=== PATIENT | female | born 1985 ===

== ENCOUNTER 2018-09-25 20:40 | Inpatient (IN) | payer MEDICAID ==
[2018-09-25 22:51] LABS: BASO % 0.4 % (0.0-2.0); EOS # 0.1 K/uL (0.0-0.7); EOS % 0.9 % (0.0-4.0); HEMOGLOBIN 13.2 g/dL (11.0-16.0); LYMPH # 1.9 K/uL (1.0-4.3); LYMPH % 17.7 % (20.0-40.0); MEAN CELL VOLUME 85.9 fL (81.0-99.0); MEAN CORPUSCULAR HEMOGLOBIN 29.2 pg (27.0-31.0); MEAN PLATELET VOLUME 9.6 fL (7.2-11.7); MONO # 0.5 K/uL (0.0-0.8); MONO % 5.1 % (0.0-10.0); NEUT # 8.1 K/uL (1.8-7.0); NEUT % 75.9 % (50.0-75.0); RBC 4.53 Mil/uL (3.80-5.20); RED CELL DISTRIBUTION WIDTH 14.3 % (11.5-14.5); WHITE BLOOD COUNT 10.7 K/uL (4.8-10.8)
[2018-09-25 22:59] LABS: SQUAMOUS EPITHIAL 15 /hpf (0-5); URINE BACTERIA OCC (<OCC); URINE BILIRUBIN NEGATIVE (NEGATIVE); URINE BLOOD NEGATIVE (NEGATIVE); URINE CLARITY Hazy (Clear); URINE COLOR Yellow (YELLOW); URINE GLUCOSE (UA) NORMAL (Normal); URINE LEUKOCYTE ESTERASE NEG Leu/uL (Negative); URINE PROTEIN NEGATIVE (NEGATIVE); URINE UROBILINOGEN NORMAL mg/dL (0.2-1.0)
[2018-09-25 23:05] LABS: ALB/GLOB RATIO 1.1 (1.0-2.1); ALBUMIN 3.6 g/dL (3.5-5.0); ALT/SGPT 27 U/L (9-52); AST/SGOT 23 U/L (14-36); BLOOD UREA NITROGEN 11 mg/dL (7-17); CALCIUM 9.5 mg/dl (8.6-10.4); GFR NON-AFRICAN AMERICAN > 60
--- NOTE | 2018-09-25 23:38 | OBADHP ---
Datetime: 09/25/2018 23:21 Admit Comment, IP Provider: A/P: 33 yo with IUP at 40 wks for IOL for GDMA1 - primagravida - GDMA1 - IOL with cervidil - Cervidil placed @2137 09/25/18 - GBS+ - PCN all, clinda resistant - Vancomycin 1g Pelvic Type - PN: Adequate Extremities - PN: Normal Abdomen - PN: Normal Back - PN: Normal Breast - PN: Normal Lungs - PN: Normal Heart - PN: Normal Thyroid - PN: Normal Neurologic - PN: Normal HEENT - PN: Normal General - PN: Normal Presentation-Admit: Vertex FHR - Baseline A Provider: 130s Contraction Comments Provider: irregular Gestation - Est Wks by US: 40.0 Vital Signs Provider: Reviewed; Within Normal Limits IP Chief Complaint: Scheduled induction of labor NICHD Variability Prov Fetus A: Moderate 6-25bpm NICHD Accel Fetus A IP Provider: 15X15 FHR Category Provider Fetus A: Category I NICHD Decel Fetus A IP Provider: None Dilatation, Provider: 1 Effacement, Provider: 60 Station, Provider: -2 Genitourinary Exam: Normal DTRs - PN: Normal EGA AdmitDate IP: 40.0 IP Adm Impression: Term, intrauterine IP Admit Plan: Initiate labor induction protocol
[2018-09-25] MEDS: Lactated Ringer's 1,000 ML IV SCH (23:45)
[2018-09-26] MEDS ORDERED: Oxytocin 30 UNIT 30 UNITS/500 ML BAG IV ONE ×2 (10:01→10:02)
[2018-09-26] MEDS ORDERED: Phenylephrine 10 mg/ml Inj ONE ×2 (15:58→16:01)
[2018-09-26] MEDS ORDERED: Morphine 1 mg/ml preservative-free Inj(Duramorph) ONE (15:58)
--- NOTE | 2018-09-26 17:30 | US ---
Indication: Estimated weight, confirm location of head Comparison: None available. Technique: Real-time ultrasound was performed through the pelvis. Findings: There is a single living fetus in cephalic presentation. Amniotic fluid volume is within normal limits. Fundal placenta. The placenta is not previa. There are no adnexal masses or cysts evident. Cervix length measures approximately 2.9 cm. The study was performed for emergent evaluation, and the whole anatomic survey of the fetus was not performed. Limited visualized anatomy appears grossly unremarkable. Measurements and calculations: Fetus has a composite sonographic age of 38 weeks 6 days. This calculation is based on the biparietal diameter, head circumference, abdominal circumference, and femur length. Estimated heart rate 142.5 beats per min. Estimated weight 3470 g. Biophysical profile: movements 2/2 breathing 2/2 tone 2/2 Amniotic fluid 2/2 Total score impression: 06/29 Impression: Single living fetus with a composite sonographic age of 38 weeks 6 days. Estimated heart rate 142.5 beats per min. Biophysical profile of 8 out of 8. Cervix length measures approximately 2.9 cm.
[2018-09-26] MEDS ORDERED: Lactated Ringer's 1,000 ML IV ONE (18:11)
[2018-09-26] MEDS ORDERED: Sodium Citrate/Citric Acid 15 ml Sol ONE (18:15)
[2018-09-26] MEDS ORDERED: Sodium Citrate/Citric Acid 15 ml Sol PO ONE (18:16)
[2018-09-26] MEDS ORDERED: Oxytocin 20 units in LR 2,000 ML IV ONE (18:29)
[2018-09-26] MEDS ORDERED: Bupivacaine HCl 15 mg/2 ml Spinal Inj ONE (18:31)
[2018-09-26] MEDS ORDERED: Lidocaine Hydrochloride 5 ML INJ ONE (18:33)
[2018-09-26] MEDS ORDERED: Oxytocin 10 Units/ml Inj ONE (19:15)
[2018-09-26] MEDS ORDERED: Oxycodone/Acetaminophen 5/325 mg Tab PO PRN (21:08)
[2018-09-26] MEDS: Simethicone 80 mg Chewtab PO SCH (22:12)
--- NOTE | 2018-09-26 22:36 | OBPN ---
Datetime: 09/26/2018 15:17 IP Progress Impression: Reassuring heart rate; Reactive non-stress test IP Informed Consent Obtain: Vaginal Delivery IP Procedures: Sterile Vag Exam IP Progress Plan: Continue present management; Induction; Antibiotic therapy; Anticipate Vaginal Del lorin Membranes, Provider: Intact Contraction Comments Provider: contractions q 5 mins on toco FHR - Baseline A Provider: 140 Gestation - Est Wks by US: 40.1 IP Progress Note Comment: Pt seen and examined at bedside. C/o lower abd pressure currently, otherwi se resting comfortably at bedside. Denies LOF or vag. bleeding. Reports +FM. On Pitocin at rate of 18 . Difficult to assess UC's secondary to patients body habitus SVE: /-3 and unchanged from this AM Discussed with patient possibility of stopping the Pitocin and repeat Cervidil tonite and restart Pitocin in AM Pt declined to continue with IOl and requested a Primary C/S. Procedure, risks and possible complications fully discussed with the patient and her mother (suppo rt Person) and she verbalized understanding and insisted in a Section delivery. Consent signed by patient. Pitocin was discontinued and Anesthesia and OR aware and will proceed with Section delive ry FHT: baseline HR 140, moderate accels, Cat I tracing A/P: here for induction of labor. Discussed with patient possibility of stopping the Pitocin and repeat Cervidil tonite and restart Pitocin in AM Pt declined to continue with IOl and requested a Primary C/S. Procedure, risks and possible complications fully discussed with the patient and her mother (suppo rt Person) and she verbalized understanding and insisted in a Section delivery. Consent signed by patient. Pitocin was discontinued and Anesthesia and OR aware and will proceed with Section delive ry FHT: baseline HR 140, moderate accels, Cat I tracing Plan d/w Dr. Devi, attending physician. Miles Nascimento, DO PGY-1 Vital Signs Provider: Reviewed; Within Normal Limits NICHD Accel Fetus A IP Provider: 15X15 FHR Category Provider Fetus A: Category I NICHD Variability Prov Fetus A: Moderate 6-25bpm Dilatation, Provider: 2 Effacement, Provider: 60 Station, Provider: -3 NICHD Decel Fetus A IP Provider: None Datetime: 09/25/2018 23:21 Presentation-Admit: Vertex
[2018-09-26] MEDS ORDERED: DiphenhydrAMINE 50 mg/ml Inj IVP PRN (22:42)
--- NOTE | 2018-09-26 23:12 | OBDS ---
DELIVERY PERSONNEL Delivery Doctor: Love Devi DO Scrub Nurse: Paula Harmon Diesel Engine Assembler: Ailin Rollins RN Anesthesiologist: Harinder MATERNAL INFORMATION Delivery Anesthesia: Spinal Medications in Delivery: Oxytocin Estimated Blood Loss (ml): 600 Maternal Complications: None; Other Other Maternal Complications: RN Comments: PrimaryLTC/S @1909,GIRL, dried _ stimulate,color pink suctioned with bulb syringe,Dr.El hernandez attended,no abnormalities noted.positive bonding with mother, 9/9,7-12-3515 gm,19.50 in Provider Comments: Primary LTC C/S with delivery of a viable female from ZEE position and af ter reducing a loose CNC x 1. Apgars 9_9, BW 7lbs, 12oz. Cord Blood and Cord pH obtained and sent EBL 600 mls, No complications Pt and tolerated procedure well and remained in OR in Stable and Satisfactory condition. LABOR SUMMARY EDC: 09/25/2018 00:00 No. Babies in Womb: 1 Attempted: No Labor Anesthesia: Intrathecal LABOR INFORMATION Cervical Ripening Agents: Cervidil (Annotations: 10 mg) Group B Beta Strep: Positive Antibiotics Time of Last Dose: 1130 Steroids Given: None Reason Steroids Not Administered: Not Applicable MEMBRANES Membranes Rupture Method: Artificial Amniotic Fluid Color: Clear Amniotic Fluid Amount: Moderate Amniotic Fluid Odor: Normal STAGES OF LABOR Stage 3 hrs: 0 Stage 3 min: 2 CSECTION DELIVERY CSection Urgency: N/A CSection Incidence: Primary Elective: Nonelective CSection Incision: Lower Uterine Transverse BABY A INFORMATION Infant Delivery Date/Time: 09/26/2018 19:09 Method of Delivery: Born in Route : No : N/A Forceps: N/A Vacuum Extraction: N/A Shoulder Dystocia : No SHOULDER DYSTOCIA BABY A Infant Delivery Date/Time: 09/26/2018 19:09 PRESENTATION/POSITION BABY A Presentation: Cephalic Cephalic Presentation: Vertex Vertex Position: Right Occipital Anterior Breech Presentation: N/A PLACENTA INFORMATION BABY A Placenta Delivery Time : 09/26/2018 19:11 Placenta Method of Delivery: Manual Removal Placenta Status: Delivered SCORES BABY A Heart Rate 1 min: >100 bpm Resp Effort 1 min: Good Cry Reflex Irritability 1 min: Cough or Sneeze or Pulls Away Muscle Tone 1 min: Active Motion Color 1 min: Body [place], Extremities Blue Resuscitation Effort 1 min: Tactile Stimulation SCORE 1 MIN: 9 Heart Rate 5 min: >100 bpm Resp Effort 5 min: Good Cry Reflex Irritability 5 min: Cough or Sneeze or Pulls Away Muscle Tone 5 min: Active Motion Color 5 min: Body [place], Extremities Blue Resuscitation Effort 5 min: N/A SCORE 5 MIN: 9 INFANT INFORMATION BABY A Gestational Age at Delivery: 40.1 Gestational Status: Term Infant Outcome : Liveborn Infant Condition : Stable Infant Sex: Female IDENTIFICATION/MEDS BABY A ID Band Number: [id number] ID Band Location: Left Leg; Left Arm Sensor Applied: Yes Sensor Number: [id number] Sensor Location : Cord Clamp Vitamin K Given : Aquamephyton 1 mg IM; Left Thigh Erythromycin Given: Given Both Eyes WEIGHT/LENGTH BABY A Infant Birthweight (gms): 3515 Infant Weight (lb): 7 Infant Weight (oz): 12 Length Inches: 19.50 Infant Length cms: 49.5 CORD INFORMATION BABY A No. Cord Vessels: 3 Nuchal Cord : Around Neck x1, Loose Infant Cord pH Baby Venous: yes Cord Blood Taken: Yes Infant Suction: Mouth; Nose ASSESSMENT BABY A Complications: None Physical Findings at Delivery: Within Normal Limits Respirations: Appears Normal Slat Grader/ALS Called : No Infant Care By: armida gamboa Transferred To: Nursery
[2018-09-27] MEDS: Lactated Ringer's 1,000 ML IV SCH (02:23)
[2018-09-27] MEDS: Oxycodone/Acetaminophen 5/325 mg Tab PO PRN ×3 (03:31→14:23)
[2018-09-27 08:39] VITALS: RESP 18
[2018-09-27 08:43] LABS: MEAN CELL VOLUME 85.7 fL (81.0-99.0); MEAN CORPUSCULAR HEMOGLOBIN 29.7 pg (27.0-31.0); MEAN CORPUSCULAR HGB CONC 34.6 g/dL (33.0-37.0); RBC 3.59 Mil/uL (3.80-5.20); RED CELL DISTRIBUTION WIDTH 14.6 % (11.5-14.5); WHITE BLOOD COUNT 9.7 K/uL (4.8-10.8)
[2018-09-27 08:45] LABS: HEMOGLOBIN 10.7 g/dL (11.0-16.0)
[2018-09-27] MEDS: Simethicone 80 mg Chewtab PO SCH ×4 (09:33→21:49)
[2018-09-27] MEDS: Prenatal Multivit/Folic Acid/Iron Tab PO SCH (09:33)
--- NOTE | 2018-09-27 14:55 | OBPPN ---
Datetime: 09/27/2018 08:26 PP Pain Prov: Within normal limits PP Nausea Prov: Denies PP Flatus Prov: No PP BM Prov: No PP Breasts Prov: Normal PP Heart Prov: Normal PP Lungs Prov: Normal PP Abdomen/Uterus Prov: Normal PP Lochia Prov: Normal PP Vulva/Perineum Prov: Normal PP Extremities Prov: Normal PP C/S Incision Prov: Normal PP Progress Prov: Abnormal PP Impression Prov: Normal progression; difficulties; Pain PP Plan Prov: Continue present management; consult PP Progress Note Prov: This is a 33 y o now at 40.1 weeks s/p elective primary low transve rse C/s POD#1. Pt seen and examined at bedside this am. States she felt a little lightheaded/dizzy wh ile rising from a seated position this am. Also c/o pain at surgical site, last received Percocet at 3 am. S/p santamaria removal at 6 am today, has not voided yet. Denies passing flatus or having BM. States baby is latching on while but states she is not producing enough breast milk yet. Obse rved ambulating around room without concerns. Denies headache, fever, chills, chest pain, sob, n/v/d/ c, urinary complaints, or other symptoms. VS: BP 124/76, P 74, T 98.3 Gen: WDWN female, NAD HEENT: NCAT, PERRLA, EOMI Neck: supple, no JVD Cardio: normal s1/s2, no m/r/g Lung: CTA, no wheezes rales or rhonchi Abd: soft, mild tenderness to palpation at surgical site, non-distended, normal bowel sounds x4 Exts: no c/c/e Neuro: AAOx3, no gross deficits on exam : mild lochia, non-foul smelling A/P: 33 y o now at 40.1 weeks s/p elective primary low transverse C/s POD#1. consulted, reassured pt to continue with as breast milk will start letting out over the next several days. C/w pain control Instructed pt to hydrate with lots of PO fluids today, advance diet as tolerated today Encourage ambulation and D/c planning for POD#[address] Palacios, attending physician. Miles Nascimento DO PGY-1 Attending Note: patient seen and evaluated by me with the Resident. i agree with the above as docu mented. Patient is clinically stable. IP PP Procedures: None
[2018-09-28] MEDS: Simethicone 80 mg Chewtab PO SCH ×4 (09:00→21:47)
[2018-09-28] MEDS: Prenatal Multivit/Folic Acid/Iron Tab PO SCH (09:01)
[2018-09-28 16:55] VITALS: O2SAT 100
[2018-09-28] MEDS: Oxycodone/Acetaminophen 5/325 mg Tab PO PRN (18:38)
--- NOTE | 2018-09-28 20:04 | OBPPN ---
Datetime: 09/28/2018 14:01 PP Pain Prov: Within normal limits PP Nausea Prov: Denies PP Flatus Prov: Yes PP BM Prov: No PP Breasts Prov: Normal PP Heart Prov: Normal PP Lungs Prov: Normal PP Abdomen/Uterus Prov: Normal PP Lochia Prov: Normal PP Vulva/Perineum Prov: Normal PP Extremities Prov: Normal PP C/S Incision Prov: Normal PP Progress Prov: Abnormal PP Comments Phys Exam Prov: FH at Umbilicus and minimal tenderness Incision clean, Dry and intact PP Impression Prov: Normal progression; difficulties; Pain PP Plan Prov: Continue present management PP Progress Note Prov: This is a 33 y o now at 40.1 weeks s/p elective primary low transve rse C/s POD#2. Pt seen and examined at bedside this am. States lightheadedness/dizziness has resolved from yeste rday, admits to drinking plenty of PO fluids. C/o pain at surgical site, requesting Percocet and Motrin prn for symptoms. Voiding without concer ns. Admits to passing flatus, denies having BM. States baby is latching on while but states she is not producing enough breast milk yet. States she was visited by the prepress specialist yesterday and they discussed techniques and t ips to help promote , but pt states she is still concerned. Observed ambulating around r oom without concerns. Denies headache, fever, chills, chest pain, sob, n/v/d/c, urinary complaints, o r other symptoms. VS: BP 126/78, P 96, T 97.8 Gen: WDWN female, NAD HEENT: NCAT, PERRLA, EOMI Neck: supple, no JVD Cardio: normal s1/s2, no m/r/g Lung: CTA, no wheezes rales or rhonchi Abd: soft, mild tenderness to palpation at surgical site, non-distended, normal bowel sounds x4 Exts: no cyanosis or clubbing; 1+ pitting edema b/l on lower exts, no calf tenderness b/l Neuro: AAOx3, no gross deficits on exam : mild lochia, non-foul smelling Skin: surgical site c/d/i A/P: 33 y o now at 40.1 weeks s/p elective primary low transverse C/s POD#2. Stable and Satisfactory condition and recovery consulted, again reassured pt to continue with . C/w pain management Instructed pt to hydrate with lots of PO water, tolerating PO diet well Encourage ambulation and D/c planning for POD#3 Pt seen, examined with, and plan d/w Dr. Devi, attending physician. Miles Nascimento, DO PGY-1 IP PP Procedures: None Vital Signs Provider PP: Reviewed; Within Normal Limits
[2018-09-29 09:39] VITALS: BP 139/80; PULSE 92; TEMP 97.7
[2018-09-29] MEDS: Prenatal Multivit/Folic Acid/Iron Tab PO SCH (09:55)
[2018-09-29] MEDS: Simethicone 80 mg Chewtab PO SCH ×2 (09:56→13:22)
[2018-09-29] MEDS ORDERED: Measles, Mumps, and Rubella 0.5 ML VIAL SC ONE ×2 (10:00→11:30)
--- NOTE | 2018-09-29 10:30 | PCM.PSYCH ---
Initial Psychiatric Evaluation - Initial Psychiatric Evaluation Type of Admission: Voluntary Legal Status: Capacity Chief Complaint (in patient's own words): I'm feeling okay.' History of Present Illness and Precipitating Events: patient is a 33 years old single [place] female, who came to the [facility] for delivery She delivered a baby girl almost 3 days ago. Today patient was consulted by psychiatry, because of history of depression and high score on Sneed scale. Patient reports a long history of depression. She reports history of more than 2 inpatient psychiatric hospitalizations, in [place]. She was last discharged in 2014. She reports history of being followed-up with a psychiatrist, who advised her to stop the medications in the beginning of . Since then she is not taking any antidepressants. patient reports that she is feeling happy that she has a baby, however she denies any feelings of hopelessness and helplessness. She reports some changes in her sleep pattern because of and delivery. However she denies any suicidal ideation or any homicidal ideation. She denies any auditory or visual hallucinations or any paranoia. She denies any manic symptoms. She denies drinking or any substance abuse. Collateral obtained from the mother, who was staying with her daughter in the hospital. She informed that patient tried to overdose in 2000 and that's only suicidal attempt she made. As per the mother, she becomes irritable sometimes however she is not suicidal or homicidal. As per her, she will watch her daughter and stay with her in [facility], as well as in [place]. past medical history None reported Current Medications: Active Medications Generic Name Dose Route Start Last Admin Trade Name Freq PRN Reason Stop Dose Admin Diphenhydramine HCl 25 mg 09/26/18 22:42 Benadryl IVP Q6 PRN Itching / Pruritus Docusate Sodium 100 mg 09/27/18 10:00 09/29/18 09:55 Colace PO 100 mg BID AURORA Administration Ferrous Sulfate 325 mg 09/27/18 10:00 09/29/18 09:56 Feosol PO 325 mg BID AURORA Administration Ibuprofen 600 mg 09/26/18 21:08 09/29/18 09:55 Motrin Tab PO 600 mg Q6H PRN Administration Pain, Mild (1-3) Ondansetron HCl 4 mg 09/26/18 22:43 Zofran Inj IVP Q6 PRN Nausea/Vomiting Oxycodone/Acetaminophen 1 tab 09/26/18 21:08 09/28/18 18:38 Percocet 5/325 Mg Tab PO 09/29/18 21:09 1 tab Q4H PRN Administration Pain, moderate (4-7) Oxycodone/Acetaminophen 2 tab 09/26/18 21:08 09/28/18 08:55 Percocet 5/325 Mg Tab PO 09/29/18 21:09 2 tab Q4H PRN Administration Pain, severe (8-10) Multivit/Folic Acid/Iron 1 tab 09/27/18 10:00 09/29/18 09:55 PO 1 tab DAILY AURORA Administration Simethicone 80 mg 09/26/18 22:00 09/29/18 09:56 Mylicon Chew Tab PO 80 mg QID AURORA Administration Past Psychiatric History - Past Psychiatric History Previous Treatment History: Inpatient Pertinent Medical Hx (Current Medical&Sleep Prob, Allergies): Allergies Allergy/AdvReac Type Severity Reaction Status Date / Time clindamycin Allergy RASH Verified 09/28/18 13:26 Penicillins Allergy RASH Verified 09/25/18 21:41 Review of Systems - Review of Systems All systems: reviewed and no additional remarkable complaints except - Psychiatric Psychiatric: Anxiety, Irritability. absent: Suicidal Ideation Mental Status Examination - Personal Presentation Personal Presentation: Looks stated age - Affect Affect: Constricted - Motor Activity Motor Activity: Calm - Reliability in Providing Information Reliability in Providing Information: Fair - Speech Speech: Organized - Mood Mood: Anxious - Formal Thought Process Formal Thought Process: No Impairment - Obsessions/Compulsions Obsessions: No Compulsions: No - Cognitive Functions Orientation: Person, Place, Situation, Time Sensorium: Alert Attention/Concentration: Attentive Abstract Thinking: [place] Estimate of Intelligence: Below average Judgement: Imparied, as evidence by: Poor judgement, Imparied, as evidence by: Lack of insight into illness - Risk Risk: Suicidal, Diminished functioning - Strength & Assets Inventory Strength & Assets Inventory: Family support DSM 5 DX - DSM 5 DSM 5 Diagnosis: Major depressive disorder recurrent moderate - Recommended/Plan of Treatment Treatment Recommendations and Plan of Treatment: Major depressive disorder recurrent moderate CBT Psychoeducation Supportive therapy Start Zoloft 25 mg by po daily Start Benadryl for 25 mg 4 insomnia Patient is psychiatrically stable cleared for discharge
--- NOTE | 2018-09-29 19:35 | OBPPN ---
Datetime: 09/29/2018 12:58 PP Pain Prov: Within normal limits PP Nausea Prov: Denies PP Flatus Prov: Yes PP BM Prov: No PP Breasts Prov: Normal PP Heart Prov: Normal PP Lungs Prov: Normal PP Abdomen/Uterus Prov: Normal PP Lochia Prov: Normal PP Vulva/Perineum Prov: Normal PP Extremities Prov: Normal PP C/S Incision Prov: Normal PP Progress Prov: Abnormal PP Impression Prov: Normal progression; difficulties PP Plan Prov: Discharge PP Progress Note Prov: This is a 33 y o now at 40.1 weeks s/p elective primary low transve rse C/S POD#3. Pt seen and examined at bedside this am. Admits to drinking some PO fluids. C/o pain at surgical site, requesting Percocet and Motrin prn for symptoms. Voiding without concer ns. Admits to passing flatus, denies having BM. States baby is latching on while but states she is not producing enough breast milk yet. Pt is using supplemental formula as well to feed baby. Observed ambulating around room without c oncerns. Denies headache, fever, chills, chest pain, sob, n/v/d/c, urinary complaints, or other sympt oms. VS: BP 126/78, P 96, T 97.8 Gen: WDWN female, NAD HEENT: NCAT, PERRLA, EOMI Neck: supple, no JVD Cardio: normal s1/s2, no m/r/g Lung: CTA, no wheezes rales or rhonchi Abd: soft, mild tenderness to palpation at surgical site, non-distended, normal bowel sounds x4 Exts: no cyanosis or clubbing; 1+ pitting edema b/l on lower exts, no calf tenderness b/l Neuro: AAOx3, no gross deficits on exam : mild lochia, non-foul smelling Skin: surgical site c/d/i A/P: 33 y o now at 40.1 weeks S/P elective primary low transverse C/S POD#3. Stable and Satisfactory condition and recovery. Instructed pt to hydrate with lots of PO water, tolerating PO diet well Encourage ambulation and Pt to follow at [facility] in 1 week after discharge for wound check, and 6 weeks after d ischarge for check. Psychiatry was consulted (Dr. Retana) for scoring > 20 on depression survey. Pt has had long standing history of depression before and admitted to being on psych meds outpatient pr ior to delivery. Dr. Retana recommended pt be started on Zoloft 25 mg PO daily, pt to be discharged on regimen. Pt was also c/o R ear pain that started today, and noted some brownish discharge coming out of the affected ear. Denied pruritis. Admitted to her ear feeling warm. Denied fever or chills. Examined wi th otoscope, tympanic membrane intact, cerumen impaction present. Will d/c pt on Debrox ear drops. Pt to f/u in clinic for cerumen disimpaction. Advised pt no heavy lifting > 20 lbs for the 1st 6 weeks after delivery. Advised pt not have sexual intercourse, place tampons in vagina, or douching for 6 weeks after del lorin. Pt declined contraception at this time; discussed with pt risks vs. benefits of various therapies and instructed pt to f/u in clinic if she changes her mind. D/c to home today on POD#3 Pt seen, examined with, and plan d/w Dr. Devi, attending physician. Miles Nascimento, DO PGY-1 IP PP Procedures: Rubella Vital Signs Provider PP: Reviewed; Within Normal Limits
--- NOTE | 2018-09-29 19:37 | OBDCSUM ---
Datetime: 09/29/2018 13:32 Discharged to, Provider: Home Follow up at, Provider: [facility] Disch Instr Activity: Normal activity; Bedrest; May be up to bathroom; May be up for meals; May Show er Disch Instr Diet: Regular Discharge Instructions, Provider: Routine instructions given Discharge Diagnosis, Provider: Term Delivered Discharge Time: 09/29/2018 15:45 Follow up in weeks, Provider: Oct 03, 2018 Disch Referrals: None Contraception discussed, Prov: Yes Disch Activity Restrictions: No exercising; No lifting; No driving; Minimize walking; Minimize stair -climbing; No sexual activity; Nothing in vagina - [place], tampons, douche Discharge Comment, Provider: 33 y o now at 40.1 weeks s/p elective primary low transverse C/s POD#3. Stable and Satisfactory condition and recovery. Instructed pt to hydrate with lots of PO water, tolerating PO diet well Encourage ambulation and Pt to follow at [facility] in 1 week after discharge for wound check, and 6 weeks after d ischarge for check. Psychiatry was consulted (Dr. Retana) for scoring > 20 on depression survey. Pt has had long standing history of depression before and admitted to being on psych meds outpatient pr ior to delivery. Dr. Retana recommended pt be started on Zoloft 25 mg PO daily, pt to be discharged on regimen. Pt was also c/o R ear pain that started today, and noted some brownish discharge coming out of the affected ear. Denied pruritis. Admitted to her ear feeling warm. Denied fever or chills. Examined wi th otoscope, tympanic membrane intact, cerumen impaction present. Will d/c pt on Debrox ear drops. Pt to f/u in clinic for cerumen disimpaction. Advised pt no heavy lifting > 20 lbs for the 1st 6 weeks after delivery. Advised pt not have sexual intercourse, place tampons in vagina, or douching for 6 weeks after del lorin. Pt declined contraception at this time; discussed with pt risks vs. benefits of various therapies and instructed pt to f/u in clinic if she changes her mind. D/c to home today on POD#3 Contraception after Delivery: Not Planning to Use
== END 2018-09-29 17:15 | disposition home or self-care (01) | DRG 540 ==
LOC: C.EROB 20:40 → C.4D 21:41 → C.4M 09-26 22:45
PROVIDERS: ADMIT Obstetrics & Gynecology; ATTEND Obstetrics & Gynecology
PROC: 3E0P7VZ Introduction of Hormone into Female Reproductive, Via Natural or Artificial Opening (ICD-10-PCS; 2018-09-25)
PROC: 10D00Z1 Extraction of Products of Conception, Low, Open Approach (ICD-10-PCS; principal; 2018-09-26)
DX: O24.420 Gestational diabetes mellitus in childbirth, diet controlled (principal); F53.0 Postpartum depression; O69.81X0 Labor and delivery complicated by cord around neck, without compression, not applicable or unspecified; O99.824 Streptococcus B carrier state complicating childbirth; O99.344 Other mental disorders complicating childbirth; H61.21 Impacted cerumen, right ear; Z3A.40 40 weeks gestation of pregnancy; Z37.0 Single live birth